=== PATIENT | female | born 1950 | race Asian ===

== ENCOUNTER 2017-10-06 20:57 | Emergency (ER) | payer MEDICAID ==
[~2017-10-06] VITALS: Ht 152.4 cm; Wt 45.5 kg
[2017-10-06 21:01] VITALS: BP 148/77
== END 2017-10-06 22:55 | disposition left against medical advice (07) ==
LOC: EMS 20:58
DX: Z53.21 Procedure and treatment not carried out due to patient leaving prior to being seen by health care provider (principal)

== ENCOUNTER 2024-10-23 14:29 | Emergency (ER) | payer OTHER ==
[2024-10-23] MEDS ORDERED: GUAIFDM PO (15:32)
[2024-10-23] MEDS ORDERED: ACET-66 PO (15:32)
[2024-10-23] MEDS ORDERED: IBUP-45 PO (15:32)
== END 2024-10-23 16:03 | disposition home or self-care (01) ==
LOC: EMS 14:29
DX: J06.9 Acute upper respiratory infection, unspecified (principal)
CPT/HCPCS: 99281; 99282; Z7502